=== PATIENT | male | born 1945 | race Caucasian/White ===

== ENCOUNTER 2017-04-12 08:49 | Inpatient (IN) | payer MEDICARE ==
[~2017-04-12] VITALS: Ht 203.2 cm; Wt 113.0 kg
[2017-04-12] MEDS ORDERED: VITA1000 PO (11:59)
[2017-04-12] MEDS ORDERED: ALLO100T PO (11:59)
[2017-04-22] MEDS ORDERED: METOPROLOL TARTRATE 25 MG TAB PO PRN (05:45)
[2017-04-22] MEDS ORDERED: CHLORHEXIDINE GLUCONATE 4% SOLN 120 ML BTL TOPICAL SCH (05:45)
[2017-04-22] MEDS ORDERED: POVIDONE IODINE 5% (ANTISEPSIS KIT) 4 APPLICATIONS EACH NARE PRN (05:45)
[2017-04-22] MEDS ORDERED: CHLORHEXIDINE GLUCONATE 2 % 1 PACK (2 CLOTHS) TOPICAL PRN (05:45)
[2017-04-22] MEDS ORDERED: INSULIN HUMAN REGULAR 1,000 UNITS/10 ML VIAL SQ PRN (05:45)
[2017-04-22] MEDS ORDERED: SODIUM CHLORID 0.9% 500 ML IV PRN (05:45)
[2017-04-22] MEDS ORDERED: ceFAZolin 2 GM PREMIX 50 ML IV SCH (05:45)
[2017-04-22] MEDS ORDERED: LACTATED RINGER'S 1000 ML IV PRN (05:45)
[2017-04-22 05:51] VITALS: BP 121/79; PULSE 48; RESP 16; TEMP 97.7; O2SAT 96
[2017-04-22] MEDS ORDERED: GENTAMICIN SULFATE 80 MG/2 ML VIAL ONE (06:08)
[2017-04-22] MEDS: TRANEXAMIC ACID INJ 1,135 MG in SODIUM CHLORIDE 0.9% INJ 100 ML IV SCH ×2 (06:38→10:36)
[2017-04-22] MEDS ORDERED: Post-op Orders (for Pharmacy) MISC XX ONE (06:45)
[2017-04-22] MEDS ORDERED: ZOLPIDEM TARTRATE 5 MG TAB PO PRN (06:45)
[2017-04-22] MEDS ORDERED: MORPHINE SULFATE 4 MG/ML INJ IV PUSH PRN (06:45)
[2017-04-22] MEDS ORDERED: SODIUM CHLORIDE 0.9% FLUSH 5 ML FLUSH IVF PRN (06:45)
[2017-04-22] MEDS ORDERED: EXPAREL PERI-ARTICULAR INJECTION (TOTAL VOL. 100 ML) P-ARTICULR SCH ×2 (07:00)
[2017-04-22] MEDS: SODIUM CHLORIDE 0.9% FLUSH 5 ML FLUSH IVF SCH ×2 (09:00→20:05)
[2017-04-22] MEDS ORDERED: fentaNYL CITRATE 250 MCG/5 ML AMP ONE (09:36)
[2017-04-22] MEDS ORDERED: MIDAZOLAM HCL 2 MG/2 ML VIAL ONE (09:36)
--- NOTE | 2017-04-22 09:43 | HHI.FF ---
Face to Face Verification Diagnosis: (1) Status post total right knee replacement Physical Therapy Gait training Knee: Total knee, Protocol: Right, Gait training, Full weight bearing Right LE Weight Bearing: WB as tolerated Right LE Range of Motion: Active ROM (AROM, AAROM, PROM, PRE. ROM goal is 0 to 140 degrees. ROM in OR was 0 to 150 degrees.) Nursing Nursing: Dressing changes Dressing Changes: Daily dressing change, Coverderm/Primapore Additional Instructions Remove steristrips on postop day 14. I have seen patient Yefri Evans on 04/22/17. My clinical findings support the need for the requested home health care services because: Ltd mobility - disease progression Limited ability to care for self High risk of falls I certify that my clinical findings support that this patient is homebound because: Post-op weakness Unsteady gait/balance Unsafe to leave home unassisted Non-utuzyyoyoe-lwjpkuaz bed/chair Nena Parnell MD (Charles) Apr 22, 2017 09:43
[2017-04-22] MEDS ORDERED: TRANEXAMIC ACID INJ 1,135 MG in SODIUM CHLORIDE 0.9% INJ 100 ML IV SCH (10:00)
[2017-04-22] MEDS ORDERED: TRANEXAMIC ACID INJ 1,335 MG in SODIUM CHLORIDE 0.9% INJ 100 ML IV SCH (10:00)
[2017-04-22] MEDS: LACTATED RINGER'S 1000 ML INJ 1,000 ML IV SCH ×3 (10:00→20:05)
[2017-04-22] MEDS ORDERED: *morphine SULFATE 8 MG/ML PERIprocedure ONLY ONE ×3 (10:10→10:38)
[2017-04-22] MEDS ORDERED: BUPIVACAINE LIPOSOME PF 1.3% 20 ML VIAL ONE (10:53)
[2017-04-22] MEDS: KETOROLAC TROMETHAMINE 30 MG/ML (IVP) VIAL IVP SCH ×3 (11:05→23:06)
[2017-04-22] MEDS ORDERED: PROPOFOL 200 MG/20 ML AMP IV ONE (11:15)
[2017-04-22] MEDS ORDERED: ONDANSETRON HCL 4 MG/2 ML VIAL IV PUSH ONE (11:15)
[2017-04-22] MEDS ORDERED: LACTATED RINGER'S 1000 ML INJ 1,000 ML IV ONE (11:15)
[2017-04-22] MEDS: ONDANSETRON HCL 4 MG/2 ML VIAL IVP PRN (11:32)
[2017-04-22] MEDS: ACETAMINOPHEN/HYDROcodone 325 MG/7.5 MG TAB PO PRN ×3 (11:32→20:04)
[2017-04-22] MEDS: MAGNESIUM HYDROXIDE SUSP 30 ML CUP PO PRN (11:32)
--- NOTE | 2017-04-22 11:33 | RADRPT ---
EXAM DATE/TIME: 04/22/2017 10:15 [place] COMPARISON: No previous studies available for comparison. INDICATIONS : Post op right knee surgery. MEDICAL HISTORY : None. SURGICAL HISTORY : None. ENCOUNTER: Initial ACUITY: 1 day PAIN SCORE: 9/10 LOCATION: Right knee FINDINGS: Patient is status post total knee replacement. The prosthetic components appear well-placed. There is a suprapatellar drain in place. CONCLUSION: Successful total knee replacement. Salomon Mendoza MD on April 22, 2017 at 11:30 Board Certified Radiologist. This report was verified electronically.
[2017-04-22 12:00] VITALS: BP 137/64; PULSE 62; RESP 16; TEMP 95.4; O2SAT 96
[2017-04-22 13:02] VITALS: O2SAT 91
[2017-04-22] MEDS ORDERED: DO NOT ADM ANY ANTICOAGULANT DRUGS PRN (13:15)
[2017-04-22 16:00] VITALS: BP 123/66; PULSE 60; RESP 15; TEMP 95.1; O2SAT 98
--- NOTE | 2017-04-22 17:48 | PD.CONS ---
HPI Service [facility] Hospitalists Consult Requested By Dr Nena Parnell Reason for Consult Medical management Primary Care Physician Nahid Beaulieu MD Diagnoses: History of Present Illness This is a 71-year-old male with past medical history significant for gout, osteoarthritis, TURP, who presents to [facility] for elective right knee total replacement. The patient status post right total knee replacement without major complications. The patient complains of some urge to urinate however he has not been able to urinate after the surgery. Patient states he has tried to urinate for several minutes however without success. The patient otherwise denies chest pain, shortness of breath, palpitations, cough, diarrhea. Patient does admit to feeling nauseous and slightly dizzy when he got up to try to urinate. Review of Systems As per history of present illness, other systems reviewed by me and negative Past Family Social History Allergies: Coded Allergies: No Known Allergies (Verified , 04/22/17) Past Medical History Gout History of cluster headaches GERD Past Surgical History Appendectomy Hernia repair Basic procedure Left knee arthroscopy Previous pain stripping for varicose veins Reported Medications Vitamin D-1000 (Cholecalciferol) 1,000 Unit Tab 1,000 Units PO DAILY Allopurinol 100 Mg Tab 100 Mg PO DAILY Active Ordered Medications Current Medications Medications (Trade) Dose Ordered Sig/Mark Route Start Time Stop Time Status Last Admin Chlorhexidine Gluconate 1 applic 1 applic ONCE TOPICAL 04/22/17 05:45 04/25/17 05:44 (Lr 1000 ml Inj) 1,000 ml @ 80 mls/hr [id number] IV 04/22/17 06:43 04/22/17 10:00 (NS Flush) 2 ml UNSCH PRN IVF 04/22/17 06:45 IV Flush 2 ml 2 ml BID IVF 04/22/17 09:00 (Ancef Inj/NS Inj) 100 ml @ 200 mls/hr Q6H IV 04/22/17 11:00 04/22/17 23:29 04/22/17 17:33 (Morphine Inj) 4 mg Q3H PRN IV PUSH 04/22/17 06:45 (Buckhorn 7.5-325 Mg) 1 tab Q4H PRN PO 04/22/17 06:45 ([place] 7.5-325 Mg) 2 tab Q4H PRN PO 04/22/17 06:45 04/22/17 15:28 (Toradol Inj) 15 mg Q6H IVP 04/22/17 12:00 04/24/17 06:01 04/22/17 17:33 (Zofran Inj) 4 mg Q6H PRN IVP 04/22/17 06:45 04/22/17 11:32 (Colace) 100 mg BID PO 04/22/17 21:00 (Ambien) 5 mg HS PRN PO 04/22/17 06:45 (Milk Of Magnesia Liq) 30 ml DAILY PRN PO 04/22/17 06:45 04/22/17 11:32 (Ecotrin Ec) 81 mg BID PO 04/23/17 09:00 (Zyloprim) 100 mg DAILY PO 04/23/17 09:00 (Vitamin D3) 1,000 units DAILY PO 04/23/17 09:00 Miscellaneous Information ALL NURSING DEPARTME... UNSCH PRN .XX 04/22/17 13:15 04/23/17 13:14 (Dulcolax Ec) 10 mg BID PO 04/22/17 21:00 Family History Patient states his mother and father both had COPD. His grandmother on maternal side of the family had diabetes. Social History The patient denies smoking. The patient drinks alcohol 2-5 beers per day. However denies ever having gone into withdrawal. The patient is and has 3 children, 2 of them are biological and one is adopted. The patient is a retired schoolteacher. Physical Exam Vital Signs Vital Signs Date Time Temp Pulse Resp B/P Pulse Ox O2 Delivery O2 Flow Rate FiO2 04/22/17 13:02 91 21 04/22/17 12:00 95.4 62 16 137/64 96 04/22/17 11:15 59 20 115/60 94 Room Air 04/22/17 11:00 57 20 105/58 94 Room Air 04/22/17 10:45 60 18 133/63 95 Room Air 04/22/17 10:30 63 20 136/65 95 Room Air 04/22/17 10:15 61 20 121/81 95 Room Air 04/22/17 10:00 97.0 65 20 130/71 96 Nasal Cannula 2 04/22/17 05:51 97.7 48 16 121/79 96 Physical Exam GENERAL: This is a well-nourished, well-developed patient, in no apparent distress. SKIN: No rashes, ecchymoses or lesions. Cool and dry. HEAD: Atraumatic. Normocephalic. No temporal or scalp tenderness. EYES: Pupils equal round and reactive. Extraocular motions intact. No scleral icterus. No injection or drainage. ENT: Nose without bleeding, purulent drainage or septal hematoma. Throat without erythema, tonsillar hypertrophy or exudate. Uvula midline. Airway patent. NECK: Trachea midline. No JVD or lymphadenopathy. Supple, nontender, no meningeal signs. CARDIOVASCULAR: Regular rate and rhythm without murmurs, gallops, or rubs. RESPIRATORY: Clear to auscultation. Breath sounds equal bilaterally. No wheezes , rales, or rhonchi. GASTROINTESTINAL: Abdomen soft, non-tender, nondistended. No hepato-splenomegaly , or palpable masses. No guarding. MUSCULOSKELETAL: Extremities without clubbing, cyanosis. Right knee is tender to palpation, is swollen and passive and active motion are limited due to pain. No calf tenderness. Negative Homans sign bilaterally. Bilateral pedal pulses in both extremities are palpable. NEUROLOGICAL: Awake and alert. Cranial nerves II through XII intact. Motor and sensory grossly within normal limits. Five out of 5 muscle strength in all muscle groups. Normal speech. Laboratory Laboratory Tests Test 04/22/17 05:53 Blood Type O POSITIVE Antibody Screen NEGATIVE Blood Bank Comment Imaging Last Impressions Knee X-Ray 04/22/17 0643 Signed Impressions: Service Date/Time: Saturday, April 22, 2017 10:15 - CONCLUSION: Successful total knee replacement. Salomon Mendoza MD Assessment and Plan Problem List: (1) Primary osteoarthritis of right knee ICD Code: M17.11 Status: Acute Plan: Continue pain control and postsurgical management as per orthopedic surgery recommendations. Patient is currently optimization consultant and IV morphine for pain control. (2) Status post total right knee replacement ICD Code: Z96.651 Status: Acute Plan: As per orthopedic surgery. (3) Urinary retention ICD Code: R33.9 Status: Acute Plan: Perla has been unable to void for most part of the day. This was discussed with RN, will do a bladder scan and if there are more than 150 L of urine retained in the bladder, will do a straight catheterization. We'll repeat bladder scan 4 hours after first bladder scan if there is still urinary retention will place a saenz catheter. (4) Gout ICD Code: M10.9 Status: Chronic Plan: Seems to be stable. Continue allopurinol. (5) GERD (gastroesophageal reflux disease) ICD Code: K21.9 Status: Chronic Plan: Patient has history of GERD and is currently asymptomatic. However we' ll place him on PPI to prevent GERD symptoms. Assessment and Plan GI prophylaxis: We'll place on PPI DVT prophylaxis: SCDs, on aspirin as per orthopedic surgery. DVT prophylaxis will be deferred to orthopedic surgery. Thank you very much Dr. Parnell, will follow-up the patient along with you. Code Status Full code Discussed Condition With Patient, RN Problem Qualifiers (1) Gout: Qualified Code: M1A.9XX0 - Chronic gout without tophus, unspecified cause, unspecified site (2) GERD (gastroesophageal reflux disease): Qualified Code: K21.9 - Gastroesophageal reflux disease without esophagitis Epi Rojas MD Apr 22, 2017 17:48
[2017-04-22 20:00] VITALS: BP 108/58; PULSE 64; RESP 16; TEMP 96.4; O2SAT 95
[2017-04-22] MEDS: BISACODYL EC 5 MG TABEC PO SCH (20:03)
[2017-04-22] MEDS: DOCUSATE SODIUM 100 MG CAP PO SCH (20:03)
[2017-04-22 21:55] LABS: HEMATOCRIT 28.6 % (39.0-51.0); MEAN CELL VOLUME 88.4 FL (80.0-100.0); MEAN CORPUSCULAR HGB CONC 33.9 % (32.0-36.0); PLATELET COUNT 209 TH/MM3 (150-450); RED BLOOD COUNT 3.24 MIL/MM3 (4.50-5.90); RED CELL DISTRIBUTION WIDTH 14.3 % (11.6-17.2); REVIEW FLAG FINAL; WHITE BLOOD COUNT 10.7 TH/MM3 (4.0-11.0)
[2017-04-22 22:06] LABS: BICARBONATE 20.3 MEQ/L (21.0-32.0); POTASSIUM 4.1 MEQ/L (3.5-5.1)
[2017-04-22 23:47] VITALS: BP 116/62; PULSE 57; RESP 16; TEMP 97; O2SAT 96
[2017-04-23 04:00] VITALS: BP 108/59; PULSE 60; RESP 16; TEMP 96.8; O2SAT 95
[2017-04-23] MEDS: ACETAMINOPHEN/HYDROcodone 325 MG/7.5 MG TAB PO PRN ×2 (05:53→09:10)
[2017-04-23] MEDS: KETOROLAC TROMETHAMINE 30 MG/ML (IVP) VIAL IVP SCH ×3 (05:54→16:48)
--- NOTE | 2017-04-23 06:16 | PD.ORT.PN ---
Subjective Post Op Day #: 1 Subjective Remarks He is doing well. There is not much pain. Range of Motion 0 to 89 degrees. Distance Walked 2 steps forward and back with PT. Objective Vitals Vital Signs Date Time Temp Pulse Resp B/P Pulse Ox O2 Delivery O2 Flow Rate FiO2 04/23/17 04:00 96.8 60 16 108/59 95 04/22/17 23:47 97.0 57 16 116/62 96 04/22/17 20:00 96.4 64 16 108/58 95 04/22/17 16:00 95.1 60 15 123/66 98 04/22/17 13:02 91 21 04/22/17 12:00 95.4 62 16 137/64 96 04/22/17 11:15 59 20 115/60 94 Room Air 04/22/17 11:00 57 20 105/58 94 Room Air 04/22/17 10:45 60 18 133/63 95 Room Air 04/22/17 10:30 63 20 136/65 95 Room Air 04/22/17 10:15 61 20 121/81 95 Room Air 04/22/17 10:00 97.0 65 20 130/71 96 Nasal Cannula 2 I/O 04/22/17 04/22/17 04/22/17 04/23/17 04/23/17 04/23/17 07:00 15:00 23:00 07:00 15:00 23:00 Intake Total 2122 ml 912 ml 480 ml Output Total 980 ml 1890 ml 750 ml Balance 1142 ml -978 ml -270 ml Intake Oral 480 ml 480 ml 480 ml IV Total 342 ml 432 ml Other 1300 ml Output Urine Total 1300 ml 750 ml Drainage Total 480 ml 590 ml Estimated Blood Loss 500 ml Result Diagram: 04/22/17 2142 04/22/17 2142 Imaging Last 24 hours Impressions Knee X-Ray 04/22/17 0643 Signed Impressions: Service Date/Time: Saturday, April 22, 2017 10:15 - CONCLUSION: Successful total knee replacement. Salomon Mendoza MD Objective Remarks He is resting comfortably, supine in bed in the CPM. The neurovascular status is intact. The dressing is dry and intact. Assessment & Plan Ortho Post Op Day #: 1 Problem List: (1) Status post total right knee replacement Plan: Continue postop care and PT. Assessment and Plan Condition: Good. Orthopaedically stable. DVT prophylaxis: ASA, TEDs, sequentials. Discharge plans: Home with C. Has appointment. Nena Parnell MD (Charles) Apr 23, 2017 06:16
[2017-04-23 06:19] LABS: AUTOMATED NEUTROPHIL # 7.9 TH/MM3 (1.8-7.7); BASOPHIL % 0.4 % (0.0-2.0); EOSINOPHIL # 0.2 TH/MM3 (0-0.4); EOSINOPHIL % 2.1 % (0.0-4.0); HEMATOCRIT 26.4 % (39.0-51.0); HEMO FLAGS DIFF FINAL; LYMPH % 13.6 % (9.0-44.0); LYMPHOCYTE # 1.5 TH/MM3 (1.0-4.8); MEAN CELL VOLUME 87.7 FL (80.0-100.0); MEAN CORPUSCULAR HGB CONC 34.2 % (32.0-36.0); MONO % 10.2 % (0.0-8.0); NEUT % 73.7 % (16.0-70.0); PLATELET COUNT 191 TH/MM3 (150-450); RED BLOOD COUNT 3.01 MIL/MM3 (4.50-5.90); RED CELL DISTRIBUTION WIDTH 14.2 % (11.6-17.2); WHITE BLOOD COUNT 10.7 TH/MM3 (4.0-11.0)
[2017-04-23 06:43] LABS: ANION GAP 7 MEQ/L (5-15); AST (GOT) 16 U/L (15-37); BICARBONATE 26.3 MEQ/L (21.0-32.0); BLOOD UREA NITROGEN 16 MG/DL (7-18); CHLORIDE 105 MEQ/L (98-107); GLOMERULAR FILTRATION RATE 78 ML/MIN (>89); MAGNESIUM 2.1 MG/DL (1.5-2.5); POTASSIUM 3.8 MEQ/L (3.5-5.1); SODIUM (NA) 138 MEQ/L (136-145)
[2017-04-23 06:47] LABS: ALKALINE PHOSPHATASE 42 U/L (45-117); ALT (GPT) 18 U/L (12-78); TOTAL BILIRUBIN ADULT 0.4 MG/DL (0.2-1.0)
--- NOTE | 2017-04-23 07:24 | MP ---
cc: Nena CHRISTOPHER. DATE OF SURGERY 04/22/2017 PREOPERATIVE DIAGNOSIS Primary osteoarthritis right knee POSTOPERATIVE DIAGNOSIS Primary osteoarthritis right knee OPERATION PERFORMED Right total knee arthroplasty using Dee Triathlon prosthesis (uncemented). SURGEON Judd Christopher MD CASE MANAGEMENT ASSOCIATE ANN MARIE Norris ANESTHESIA Spinal with supplemental adductor canal block with additional local. INDICATIONS AND FINDINGS This is a 71-year-old man who has had pain in his right knee over a year and a half. He had significant pain in the knee and had arthroscopic surgery which subsequently did fairly well for several months afterwards. He began to have increasing pain and increasing disability from the knee. He has had pain when weightbearing and has some relief when limiting weightbearing. His ambulation tolerance is markedly diminished from what it previously was. He has stiffness in the knee with medial pain and pain ascending and descending stairs and standing from a seated position. This awakens him. He has not responded to conservative measures including anti-inflammatory agents, analgesics, nonsteroidal anti-inflammatory agents, activity modification, ambulatory aids. Physical findings showed some medial laxity with tenderness in the medial compartment and significant crepitation. There was an effusion. X-rays and MRI showed significant arthritis particularly in the patellofemoral joint, but also in the medial compartment. There are osteophytes and areas of loss of articular cartilage to exposed subchondral bone. OPERATIVE FINDINGS Showed significant osteoarthritis in the knee with loss of articular color cartilage down to expose subchondral bone. The patellofemoral articulation and changes especially in the medial compartment with cobblestone irregularity and additional loose bodies. The prosthesis used was an uncemented Dee Triathlon prosthesis with the femur being a size 8 with the tibia being a Tritanium baseplate size 8 with a 9 mm cruciate-retaining spacer and the patella being a size 40 asymmetric Tritanium backed. PROCEDURE The patient was brought to the operating room and a spinal anesthetic was administered in the clean-air operating suite. He also had an adductor canal block carried out. He was placed into a supine position on the operating table with a small bump under the right hip and a pneumatic tourniquet about the right thigh. He received prophylactic antibiotics on arrival in the operating room in the form of Ancef and also received tranexamic acid. The right leg was then prepped with alcohol, Hibiclens and Chloraprep and draped in the usual manner with the knee draped free. An appropriate time-out procedure was carried out. A longitudinal anterior incision was made from about three fingerbreadths above the superior medial pole of the patella down to the tibial tubercle. The incision was deepened through the subcutaneous tissues to the retinacular structures which were exposed medially and laterally. The medial retinacular incision was made from the superior medial pole of patella down to the tibial tubercle and up into the quadriceps tendon splitting it longitudinally. The patella was reflected. Medial and lateral dissection was carried out. The infrapatellar fat pad was debulked. The posterior surface of the patella was transected with the oscillating saw. A fenestration was made in the distal end of the femur for the intramedullary referencing guide. White size line was marked. The cutting guide was then positioned in place and stabilized with pins. The distal femoral cut was completed with the oscillating saw, resecting 8 mm. The sizing guide was then positioned. This appeared to possibly be slightly larger than an 8, therefore the anterior shift block was positioned in place. An anterior shift of 1.5 mm was made and two drill holes made. A four-in-one cutting block was then positioned in place and stabilized with pins. The stylus showed that this appeared to be satisfactory. The anterior cut was then completed with the oscillating saw after trimming some osteophytes. This was then carefully checked and the cutting block was brought back to the original position. Anterior cut was made and appeared to be appropriate without any notching. The posterior chamfer cuts and anterior chamfer cut were then completed with the oscillating saw. Osteophytes were trimmed. Attention was directed to the tibia. The tibial drill hole was made at that the area of the footprint of the anterior cruciate ligament. The intermedullary guide was then used with rotation being stabilized with a pin and further depth being verified with a stylus off the lateral side. The cutting block was stabilized with pins. The jig was removed. The depth of cut was verified and adjusted with the use of the cut spacer block. The proximal tibial cutting guide was stabilized with a cross pin. The proximal tibial cut was then made with the oscillating saw taking care to prevent injury to associated structures. The meniscectomies were completed. The osteophytes were trimmed from the posterior aspect of the femur. The posterior capsular injections of Exparel were carried out. The tibial baseplate was a size 8 with a 9 mm spacer. The femoral component size 8 cruciate-retaining was impacted into place and seated appropriately. The patella drill guide was positioned in place and drill holes made for the 40-mm asymmetric patella. The knee was taken through a range of motion which was easily 0 degrees extension to 150 degrees of flexion with excellent stability throughout the range of motion and appropriate tracking. The femoral drill holes were made. The patella and femoral trial components and a tibial spacer component for the trials were removed. The tibial bone plug and femoral bone plug were placed into the appropriate positions. The tibial punch was impacted through its guide followed by removal of the baseplate trial and placement of the drill guide. Drill holes were made. Cut ends of bone were cleaned with pulse lavage. The tibial baseplate was impacted into place and seated appropriately. This was a Tritanium size 8. The 9-mm spacer was inserted. The femoral component was impacted into place and seated appropriately. This was also a size 8 cruciate-retaining. The patella component was placed onto the posterior surface of the patella and stabilized with the patella vice. The wound was irrigated. Drains were brought out the superolateral aspect of the suprapatellar pouch. The remainder of the Exparel was injected throughout the periarticular area. Wound closure then commenced using 0 Vicryl interrupted ayndim-xo-eakjj sutures for retinacular structures, 2-0 Vicryl interrupted simple sutures with buried knots for the subcutaneous tissues and 4-0 Monocryl continuous subcuticular closure for the skin. The wound was dressed with Steri-Strips followed by a dry dressing, sterile Sof-Rol, cooling pad, further sterile Sof-Rol and Elvis bandage from base of the toe to [facility]. The patient was transferred from the operating room to the recovery room in satisfactory condition having tolerated the procedure well. Counts were correct. Specimens none. Estimated blood loss 500 mL. MD ULICES Gregg/VICKY /9:53 AM /7:15 AM
[2017-04-23 08:00] VITALS: BP 110/60; PULSE 52; RESP 15; TEMP 95.9; O2SAT 98
[2017-04-23] MEDS: SODIUM CHLORIDE 0.9% FLUSH 5 ML FLUSH IVF SCH ×2 (09:00→19:58)
[2017-04-23] MEDS: DOCUSATE SODIUM 100 MG CAP PO SCH ×2 (09:10→19:55)
[2017-04-23] MEDS: ASPIRIN EC 81 MG TABEC PO SCH ×2 (09:10→19:55)
[2017-04-23] MEDS: BISACODYL EC 5 MG TABEC PO SCH ×2 (09:10→19:56)
[2017-04-23] MEDS: CHOLECALCIFEROL (VIT D3) 1000 UNIT TAB PO SCH (09:10)
[2017-04-23] MEDS: MAGNESIUM HYDROXIDE SUSP 30 ML CUP PO PRN (09:11)
[2017-04-23] MEDS: ALLOPURINOL 100 MG TAB PO SCH (09:11)
[2017-04-23 09:44] VITALS: O2SAT 97
[2017-04-23] MEDS: ONDANSETRON HCL 4 MG/2 ML VIAL IVP PRN (11:45)
[2017-04-23 12:00] VITALS: BP 116/68; PULSE 57; RESP 14; TEMP 97; O2SAT 97
[2017-04-23 16:00] VITALS: BP 126/66; PULSE 59; RESP 14; TEMP 95.9; O2SAT 98
--- NOTE | 2017-04-23 19:07 | HHI.PR ---
Subjective Remarks Follow up for primary osteoarthritis of the right knee, urinary retention. Patient is currently doing well. He reports complete resolution of urinary retention problems. No fever, chills. Objective Vitals Vital Signs Date Time Temp Pulse Resp B/P Pulse Ox O2 Delivery O2 Flow Rate FiO2 04/23/17 18:10 16 04/23/17 16:00 95.9 59 14 126/66 98 04/23/17 12:00 97.0 57 14 116/68 97 04/23/17 09:44 97 21 04/23/17 08:00 95.9 52 15 110/60 98 04/23/17 04:00 96.8 60 16 108/59 95 04/22/17 23:47 97.0 57 16 116/62 96 04/22/17 20:00 96.4 64 16 108/58 95 I/O 04/22/17 04/22/17 04/22/17 04/23/17 04/23/17 04/23/17 07:00 15:00 23:00 07:00 15:00 23:00 Intake Total 2122 ml 912 ml 1128 ml 720 ml Output Total 980 ml 1890 ml 1110 ml 940 ml 120 ml Balance 1142 ml -978 ml 18 ml -220 ml -120 ml Intake Oral 480 ml 480 ml 480 ml 720 ml IV Total 342 ml 432 ml 648 ml 0 ml Other 1300 ml Output Urine Total 1300 ml 750 ml 800 ml Drainage Total 480 ml 590 ml 360 ml 140 ml 120 ml Estimated Blood Loss 500 ml # Voids 4 Result Diagram: 04/23/17 0540 04/23/17 0540 Imaging Last Impressions Knee X-Ray 04/22/17 0643 Signed Impressions: Service Date/Time: Saturday, April 22, 2017 10:15 - CONCLUSION: Successful total knee replacement. Salomon Mendoza MD Objective Remarks GENERAL: AOX3, NAD. SKIN: Warm and dry. HEAD: Normocephalic. EYES: No scleral icterus. No injection or drainage. NECK: Supple, trachea midline. No JVD or lymphadenopathy. CARDIOVASCULAR: Regular rate and rhythm without murmurs, gallops, or rubs. RESPIRATORY: Breath sounds equal bilaterally. No accessory muscle use. GASTROINTESTINAL: Abdomen soft, non-tender, nondistended. MUSCULOSKELETAL: No cyanosis, or edema. BACK: Nontender without obvious deformity. No CVA tenderness. Procedures 04/22/2017 Right total knee arthroplasty using Gilman Triathlon prosthesis (uncemented). A/P Problem List: (1) Primary osteoarthritis of right knee ICD Code: M17.11 Status: Acute (2) Status post total right knee replacement ICD Code: Z96.651 Status: Acute (3) Urinary retention ICD Code: R33.9 Status: Acute (4) Gout ICD Code: M10.9 Status: Chronic (5) GERD (gastroesophageal reflux disease) ICD Code: K21.9 Status: Chronic Assessment and Plan This is a 71-year-old male with past medical history significant for gout, osteoarthritis, TURP, who presents to [facility] for elective right knee total replacement. Patient had some urinary difficulty. However, on 2016, he reported resolution of any urinary difficulties. - Primary osteoarthritis of right knee - s/p right total knee arthroplasty. - Currently on [place] 7.5/325mg 1-2 tablets PRN, Toradol 15mg IV Q6hrs (8 doses). - Bowel regimen - Dulcolax, Colace. - Continue Aspirin 81mg BID. - Urinary retention - History of TURP - Symptoms resolved. Patient is encouraged to follow up with his Urologist. - Gout - Continue Allopurinol. - GERD - start PPI - continue while on Aspirin. Full code. Ambulation. Problem Qualifiers (1) Gout: Qualified Code: M1A.9XX0 - Chronic gout without tophus, unspecified cause, unspecified site (2) GERD (gastroesophageal reflux disease): Qualified Code: K21.9 - Gastroesophageal reflux disease without esophagitis David Brizuela DO Apr 23, 2017 19:07
[2017-04-23 19:50] VITALS: BP 123/66; PULSE 67; RESP 18; TEMP 96.9; O2SAT 97
[2017-04-23] MEDS: LACTATED RINGER'S 1000 ML INJ 1,000 ML IV SCH (19:56)
[2017-04-24] VITALS (7 sets, daily range): BP systolic 104–130; BP diastolic 62–73; PULSE 60–71; RESP 16–18; TEMP 95.9–98.6; O2SAT 93–97
[2017-04-24] MEDS: KETOROLAC TROMETHAMINE 30 MG/ML (IVP) VIAL IVP SCH ×2 (00:04→05:39)
[2017-04-24] MEDS: ACETAMINOPHEN/HYDROcodone 325 MG/7.5 MG TAB PO PRN ×4 (01:19→19:36)
[2017-04-24 05:49] LABS: HEMATOCRIT 24.6 % (39.0-51.0); REVIEW FLAG FINAL
--- NOTE | 2017-04-24 06:05 | PD.ORT.PN ---
Subjective Post Op Day #: 2 Subjective Remarks He is doing relatively well. There is still not much pain. Range of Motion 0 to 100 degrees. Distance Walked 200 feet. Objective Vitals Vital Signs Date Time Temp Pulse Resp B/P Pulse Ox O2 Delivery O2 Flow Rate FiO2 04/24/17 04:20 97.7 60 16 117/62 94 04/24/17 00:15 98.2 62 16 120/71 96 04/23/17 19:50 96.9 67 18 123/66 97 04/23/17 18:10 16 04/23/17 16:00 95.9 59 14 126/66 98 04/23/17 12:00 97.0 57 14 116/68 97 04/23/17 09:44 97 21 04/23/17 08:00 95.9 52 15 110/60 98 I/O 04/23/17 04/23/17 04/23/17 04/24/17 04/24/17 04/24/17 07:00 15:00 23:00 07:00 15:00 23:00 Intake Total 1128 ml 720 ml 960 ml Output Total 1110 ml 940 ml 830 ml 160 ml Balance 18 ml -220 ml 130 ml -160 ml Intake Oral 480 ml 720 ml 960 ml IV Total 648 ml 0 ml Output Urine Total 750 ml 800 ml 600 ml Drainage Total 360 ml 140 ml 230 ml 160 ml # Voids 4 # Bowel Movements 0 Result Diagram: 04/24/17 0427 04/23/17 0540 Imaging Last 24 hours Impressions Knee X-Ray 04/22/17 0643 Signed Impressions: Service Date/Time: Saturday, April 22, 2017 10:15 - CONCLUSION: Successful total knee replacement. Slaomon Mendoza MD Objective Remarks He is resting comfortably, supine in bed in the CPM. The neurovascular status is intact. The dressing is dry and intact. Assessment & Plan Ortho Post Op Day #: 2 Problem List: (1) Status post total right knee replacement Plan: Continue postop care and PT. Assessment and Plan Condition: Good. Orthopaedically stable. DVT prophylaxis: ASA, TEDs, sequentials. Discharge plans: Home with [facility]. Has appointment. Rx [place] 7.5/325, Zofran 4mg SL Nena Parnell MD (Charles) Apr 24, 2017 06:05
[2017-04-24] MEDS ORDERED: HYDR-3580 PO (08:13)
[2017-04-24] MEDS ORDERED: ASPI-99 PO (08:13)
[2017-04-24] MEDS ORDERED: ZOFR4TAB3 SL (08:13)
[2017-04-24] MEDS: CHOLECALCIFEROL (VIT D3) 1000 UNIT TAB PO SCH (08:31)
[2017-04-24] MEDS: PANTOPRAZOLE SOD 20 MG DELAYED RELEASE TAB PO SCH (08:32)
[2017-04-24] MEDS: BISACODYL EC 5 MG TABEC PO SCH ×2 (08:32→19:35)
[2017-04-24] MEDS: ASPIRIN EC 81 MG TABEC PO SCH ×2 (08:32→19:36)
[2017-04-24] MEDS: ALLOPURINOL 100 MG TAB PO SCH (08:32)
[2017-04-24] MEDS: DOCUSATE SODIUM 100 MG CAP PO SCH ×2 (08:32→19:35)
[2017-04-24] MEDS: SODIUM CHLORIDE 0.9% FLUSH 5 ML FLUSH IVF SCH ×2 (08:33→19:32)
[2017-04-24] MEDS: LACTATED RINGER'S 1000 ML INJ 1,000 ML IV SCH ×2 (08:43→19:32)
--- NOTE | 2017-04-24 09:13 | HHI.PR ---
Subjective Remarks Follow up for primary osteoarthritis of the right knee, urinary retention. Mr. Evans is doing well. No acute concerns. Denies any chest pain, shortness of breath, fever, chills. Objective Vitals Vital Signs Date Time Temp Pulse Resp B/P Pulse Ox O2 Delivery O2 Flow Rate FiO2 04/24/17 08:00 96.7 60 18 121/66 93 04/24/17 04:20 97.7 60 16 117/62 94 04/24/17 00:15 98.2 62 16 120/71 96 04/23/17 19:50 96.9 67 18 123/66 97 04/23/17 18:10 16 04/23/17 16:00 95.9 59 14 126/66 98 04/23/17 12:00 97.0 57 14 116/68 97 04/23/17 09:44 97 21 I/O 04/23/17 04/23/17 04/23/17 04/24/17 04/24/17 04/24/17 07:00 15:00 23:00 07:00 15:00 23:00 Intake Total 1128 ml 720 ml 960 ml 960 ml Output Total 1110 ml 940 ml 830 ml 1010 ml Balance 18 ml -220 ml 130 ml -50 ml Intake Oral 480 ml 720 ml 960 ml 960 ml IV Total 648 ml 0 ml Output Urine Total 750 ml 800 ml 600 ml 850 ml Drainage Total 360 ml 140 ml 230 ml 160 ml # Voids 4 # Bowel Movements 0 0 Result Diagram: 04/24/17 0427 04/23/17 0540 Imaging Last Impressions Knee X-Ray 04/22/17 0643 Signed Impressions: Service Date/Time: Saturday, April 22, 2017 10:15 - CONCLUSION: Successful total knee replacement. Salomon Mendoza MD Objective Remarks GENERAL: AOX3, NAD. SKIN: Warm and dry. HEAD: Normocephalic. EYES: No scleral icterus. No injection or drainage. NECK: Supple, trachea midline. No JVD or lymphadenopathy. CARDIOVASCULAR: Regular rate and rhythm without murmurs, gallops, or rubs. RESPIRATORY: Breath sounds equal bilaterally. No accessory muscle use. GASTROINTESTINAL: Abdomen soft, non-tender, nondistended. MUSCULOSKELETAL: No cyanosis, or edema. BACK: Nontender without obvious deformity. No CVA tenderness. Procedures 04/22/2017 Right total knee arthroplasty using [place] Triathlon prosthesis (uncemented). A/P Problem List: (1) Primary osteoarthritis of right knee ICD Code: M17.11 Status: Acute (2) Status post total right knee replacement ICD Code: Z96.651 Status: Acute (3) Urinary retention ICD Code: R33.9 Status: Acute (4) Gout ICD Code: M10.9 Status: Chronic (5) GERD (gastroesophageal reflux disease) ICD Code: K21.9 Status: Chronic Assessment and Plan This is a 71-year-old male with past medical history significant for gout, osteoarthritis, TURP, who presents to [facility] for elective right knee total replacement. Patient had some urinary difficulty. However, on 2016, he reported resolution of any urinary difficulties. - Primary osteoarthritis of right knee - s/p right total knee arthroplasty. - Currently on [place] 7.5/325mg 1-2 tablets PRN, Toradol 15mg IV Q6hrs (8 doses). - Bowel regimen - Dulcolax, Colace. - Continue Aspirin 81mg BID. - Urinary retention - History of TURP - Symptoms resolved. Patient is encouraged to follow up with his Urologist. - Gout - Continue Allopurinol. - GERD - continue PPI - continue while on Aspirin. - Patient is hemodynamically stable. Patient is being discharged home with home health. Full code. Ambulation. Problem Qualifiers (1) Gout: Qualified Code: M1A.9XX0 - Chronic gout without tophus, unspecified cause, unspecified site (2) GERD (gastroesophageal reflux disease): Qualified Code: K21.9 - Gastroesophageal reflux disease without esophagitis David Brizuela DO Apr 24, 2017 9:13 am
[2017-04-25] MEDS: ACETAMINOPHEN/HYDROcodone 325 MG/7.5 MG TAB PO PRN ×5 (00:11→20:53)
[2017-04-25 04:00] VITALS: BP 116/64; PULSE 68; RESP 17; TEMP 99.6; O2SAT 94
--- NOTE | 2017-04-25 06:42 | PD.ORT.PN ---
Subjective Post Op Day #: 3 Subjective Remarks He has been doing relatively well, but became diaphoretic in the bathroom. There is still not much pain, reportedly about a level of 2. Range of Motion 0 to 108 degrees. Distance Walked 15 feet, then 100 feet. Objective Vitals Vital Signs Date Time Temp Pulse Resp B/P Pulse Ox O2 Delivery O2 Flow Rate FiO2 04/25/17 04:00 99.6 68 17 116/64 94 04/24/17 23:26 98.6 67 16 118/67 96 04/24/17 19:00 96.6 68 18 125/73 97 04/24/17 16:00 97.5 63 18 130/72 95 04/24/17 11:25 95.9 71 18 104/67 97 04/24/17 08:00 96.7 60 18 121/66 93 I/O 04/24/17 04/24/17 04/24/17 04/25/17 04/25/17 04/25/17 07:00 15:00 23:00 07:00 15:00 23:00 Intake Total 960 ml 1200 ml 480 ml 250 ml Output Total 1010 ml 960 ml Balance -50 ml 1200 ml 480 ml -710 ml Intake Oral 960 ml 1200 ml 480 ml 250 ml Output Urine Total 850 ml 960 ml Drainage Total 160 ml # Voids 4 2 # Bowel Movements 0 0 0 0 Result Diagram: 04/24/17 0427 04/23/17 0540 Imaging Last 24 hours Impressions Knee X-Ray 04/22/17 0643 Signed Impressions: Service Date/Time: Saturday, April 22, 2017 10:15 - CONCLUSION: Successful total knee replacement. Salomon Mendoza MD Objective Remarks He is resting comfortably, supine in bed in the [facility]. The neurovascular status is intact. The dressing is dry and intact. There is no erythema, induration, significant effusion or significant tenderness at this time. Assessment & Plan Ortho Post Op Day #: 3 Problem List: (1) Status post total right knee replacement Plan: Continue postop care and PT. Add Celebrex to analgesic regimen. Assessment and Plan Condition: Good. Orthopaedically stable. DVT prophylaxis: ASA, TEDs, sequentials. Discharge plans: Home with [facility]. Has appointment. Rx [place] 7.5/325, Zofran 4mg SL Nena Parnell MD (Charles) Apr 25, 2017 06:42
[2017-04-25] MEDS: CELECOXIB 200 MG CAP PO SCH ×2 (07:37→20:52)
[2017-04-25 08:00] VITALS: BP 138/75; PULSE 63; RESP 18; TEMP 96.5; O2SAT 96
[2017-04-25] MEDS: SODIUM CHLORIDE 0.9% FLUSH 5 ML FLUSH IVF SCH ×2 (09:00→20:54)
[2017-04-25] MEDS: LACTATED RINGER'S 1000 ML INJ 1,000 ML IV SCH ×2 (09:43→21:03)
[2017-04-25] MEDS ORDERED: BISACODYL 10 MG SUPP RECTAL PRN (10:15)
--- NOTE | 2017-04-25 10:22 | HHI.PR ---
Subjective Remarks Written by Sherice Sawyer, acting as scribe for Dr. Brizuela on 04/25/17 at 10:15. Follow up for primary osteoarthritis of the right knee, urinary retention. Patient seen and examined. Patient doing well, denies any new acute complaints. Patient did admit to dizziness upon standing early am, denies any current dizziness. Ambulating well in room. Denies any recent fever, chills, cough, shortness of breath, chest pain, abdominal pain, nausea, vomiting, diarrhea or dysuria. Objective Vitals Vital Signs Date Time Temp Pulse Resp B/P Pulse Ox O2 Delivery O2 Flow Rate FiO2 04/25/17 08:00 96.5 63 18 138/75 96 04/25/17 04:00 99.6 68 17 116/64 94 04/24/17 23:26 98.6 67 16 118/67 96 04/24/17 19:00 96.6 68 18 125/73 97 04/24/17 16:00 97.5 63 18 130/72 95 04/24/17 11:25 95.9 71 18 104/67 97 I/O 04/24/17 04/24/17 04/24/17 04/25/17 04/25/17 04/25/17 07:00 15:00 23:00 07:00 15:00 23:00 Intake Total 960 ml 1200 ml 480 ml 250 ml Output Total 1010 ml 960 ml Balance -50 ml 1200 ml 480 ml -710 ml Intake Oral 960 ml 1200 ml 480 ml 250 ml Output Urine Total 850 ml 960 ml Drainage Total 160 ml # Voids 4 2 # Bowel Movements 0 0 0 0 Result Diagram: 04/24/17 0427 04/23/17 0540 Imaging Last Impressions Knee X-Ray 04/22/17 0643 Signed Impressions: Service Date/Time: Saturday, April 22, 2017 10:15 - CONCLUSION: Successful total knee replacement. Salomon Mendoza MD Objective Remarks GENERAL: Well-developed, well-nourished patient, in NAD. AOX3 SKIN: Warm and dry. HEENT: Normocephalic. No scleral icterus. No injection or drainage. NECK: Supple, trachea midline. No JVD or lymphadenopathy. CARDIOVASCULAR: Regular rate and rhythm without murmurs, gallops, or rubs. RESPIRATORY: Breath sounds equal bilaterally. No accessory muscle use. GASTROINTESTINAL: Abdomen soft, non-tender, nondistended. MUSCULOSKELETAL: No cyanosis, or edema. BACK: Nontender without obvious deformity. No CVA tenderness. Procedures 04/22/2017 Right total knee arthroplasty using Dee Triathlon prosthesis (uncemented). A/P Problem List: (1) Primary osteoarthritis of right knee ICD Code: M17.11 Status: Acute (2) Status post total right knee replacement ICD Code: Z96.651 Status: Acute (3) Urinary retention ICD Code: R33.9 Status: Acute (4) Gout ICD Code: M10.9 Status: Chronic (5) GERD (gastroesophageal reflux disease) ICD Code: K21.9 Status: Chronic Assessment and Plan This is a 71-year-old male with past medical history significant for gout, osteoarthritis, TURP, who presents to [facility] for elective right knee total replacement. Patient had some urinary difficulty. However, on 2016, he reported resolution of any urinary difficulties. Primary osteoarthritis of right knee - s/p right total knee arthroplasty. - Currently on [place] 7.5/325mg 1-2 tablets PRN, Toradol 15mg IV Q6hrs (8 doses). Morphine 4 mg IV q3h PRN for breakthrough pain. - No BM as of yet since surgery. Continue bowel regimen - Dulcolax, Colace. Order for Dulcolax suppository. Follow. - Continue Aspirin 81mg BID. Normocytic normochromic anemia suspect secondary to surgery - Hemoglobin 9.0/Hematocrit 27.0. No signs or symptoms of bleeding. Patient asymptomatic. Will monitor. Urinary retention History of TURP - Symptoms resolved. Patient is encouraged to follow up with his Urologist. Gout - Continue Allopurinol. GERD - continue PPI - continue while on Aspirin. Full code. Ambulation. This note was transcribed by WING [place]. I, Dr. Ras Brizuela personally performed the history, physical exam, and medical decision making; and confirmed the accuracy of the information in the transcribed note. Authenticated by Dr. Ras Brizuela on 04/26/17 at 00:26. Discharge Planning Plan is to go home with [facility]. Problem Qualifiers (1) Gout: Qualified Code: M1A.9XX0 - Chronic gout without tophus, unspecified cause, unspecified site (2) GERD (gastroesophageal reflux disease): Qualified Code: K21.9 - Gastroesophageal reflux disease without esophagitis Sherice Sawyer Apr 25, 2017 10:22 David Brizuela DO Apr 26, 2017 00:26
[2017-04-25] MEDS: BISACODYL EC 5 MG TABEC PO SCH ×2 (10:25→20:52)
[2017-04-25] MEDS: PANTOPRAZOLE SOD 20 MG DELAYED RELEASE TAB PO SCH (10:25)
[2017-04-25] MEDS: DOCUSATE SODIUM 100 MG CAP PO SCH ×2 (10:25→20:53)
[2017-04-25] MEDS: ASPIRIN EC 81 MG TABEC PO SCH ×2 (10:25→20:53)
[2017-04-25] MEDS: CHOLECALCIFEROL (VIT D3) 1000 UNIT TAB PO SCH (10:25)
[2017-04-25] MEDS: ALLOPURINOL 100 MG TAB PO SCH (10:25)
[2017-04-25 10:52] LABS: REVIEW FLAG FINAL
[2017-04-25] MEDS: ONDANSETRON HCL 4 MG/2 ML VIAL IVP PRN (11:29)
[2017-04-25 12:00] VITALS: BP 128/71; PULSE 55; RESP 18; TEMP 97.1; O2SAT 97
[2017-04-25] MEDS: MAGNESIUM HYDROXIDE SUSP 30 ML CUP PO PRN (13:56)
[2017-04-25 16:00] VITALS: BP 125/70; PULSE 61; RESP 18; TEMP 95.8; O2SAT 100
[2017-04-25 19:00] VITALS: BP 146/81; PULSE 62; RESP 16; TEMP 96.8; O2SAT 98
[2017-04-26 00:33] VITALS: BP 139/73; PULSE 62; RESP 17; TEMP 95.9; O2SAT 98
[2017-04-26] MEDS: ACETAMINOPHEN/HYDROcodone 325 MG/7.5 MG TAB PO PRN ×4 (01:31→15:32)
[2017-04-26] MEDS: MAGNESIUM HYDROXIDE SUSP 30 ML CUP PO PRN (06:02)
--- NOTE | 2017-04-26 06:35 | PD.ORT.PN ---
Subjective Post Op Day #: 4 Subjective Remarks He is doing much better today. There is still pain. It is well controlled with medication. Range of Motion 0 to 110 degrees. Distance Walked 15, then 200 feet with PT. Objective Vitals Vital Signs Date Time Temp Pulse Resp B/P Pulse Ox O2 Delivery O2 Flow Rate FiO2 04/26/17 02:31 18 04/26/17 00:33 95.9 62 17 139/73 98 04/25/17 22:32 Room Air 04/25/17 21:53 18 04/25/17 19:00 96.8 62 16 146/81 98 04/25/17 16:00 95.8 61 18 125/70 100 04/25/17 12:00 97.1 55 18 128/71 97 04/25/17 08:00 96.5 63 18 138/75 96 I/O 04/25/17 04/25/17 04/25/17 04/26/17 04/26/17 04/26/17 07:00 15:00 23:00 07:00 15:00 23:00 Intake Total 250 ml 960 ml 240 ml Output Total 960 ml 650 ml Balance -710 ml 960 ml -410 ml Intake Oral 250 ml 960 ml 240 ml Output Urine Total 960 ml 650 ml # Voids 6 2 # Bowel Movements 0 0 Result Diagram: 04/25/17 0924 04/23/17 0540 Imaging Last 24 hours Impressions Knee X-Ray 04/22/17 0643 Signed Impressions: Service Date/Time: Saturday, April 22, 2017 10:15 - CONCLUSION: Successful total knee replacement. Salomon Mendoza MD Objective Remarks He is resting comfortably, supine in bed in the [facility]. The neurovascular status is intact. The dressing is dry and intact. There is no erythema, induration, significant effusion or significant tenderness at this time. Assessment & Plan Ortho Post Op Day #: 4 Problem List: (1) Status post total right knee replacement Plan: Continue postop care and PT. Add Celebrex to analgesic regimen. Assessment and Plan Condition: Good. Orthopaedically stable. DVT prophylaxis: ASA, TEDs, sequentials. Discharge plans: Home with [facility]. Has appointment. Rx [place] 7.5/325, Zofran 4mg SL, Celebrex 200mg BID Nena Parnell MD (Charles) Apr 26, 2017 06:35
[2017-04-26] MEDS ORDERED: CELE200C PO (07:06)
[2017-04-26 07:40] VITALS: BP 133/74; PULSE 60; RESP 16; TEMP 95.4; O2SAT 100
[2017-04-26 07:45] VITALS: BP 130/73; PULSE 87; RESP 16; TEMP 97.7; O2SAT 98
[2017-04-26] MEDS: SODIUM CHLORIDE 0.9% FLUSH 5 ML FLUSH IVF SCH (09:00)
[2017-04-26] MEDS: ASPIRIN EC 81 MG TABEC PO SCH (09:16)
[2017-04-26] MEDS: CELECOXIB 200 MG CAP PO SCH (09:16)
[2017-04-26] MEDS: DOCUSATE SODIUM 100 MG CAP PO SCH (09:17)
[2017-04-26] MEDS: BISACODYL EC 5 MG TABEC PO SCH (09:17)
[2017-04-26] MEDS: ALLOPURINOL 100 MG TAB PO SCH (09:17)
[2017-04-26] MEDS: CHOLECALCIFEROL (VIT D3) 1000 UNIT TAB PO SCH (09:17)
[2017-04-26] MEDS: PANTOPRAZOLE SOD 20 MG DELAYED RELEASE TAB PO SCH (09:17)
[2017-04-26] MEDS: LACTATED RINGER'S 1000 ML INJ 1,000 ML IV SCH (10:43)
[2017-04-26 11:36] VITALS: BP 133/73; PULSE 58; RESP 16; TEMP 95.7; O2SAT 100
--- NOTE | 2017-04-26 14:40 | HHI.PR ---
Subjective Remarks Follow up for primary osteoarthritis of the right knee, urinary retention. Patient is currently doing well. Denies any chest pain, shortness of breath, fever or chills. He had a large bowel movement today. Wants to go home. Objective Vitals Vital Signs Date Time Temp Pulse Resp B/P Pulse Ox O2 Delivery O2 Flow Rate FiO2 04/26/17 11:36 95.7 58 16 133/73 100 04/26/17 07:40 95.4 60 16 133/74 100 04/26/17 02:31 18 04/26/17 00:33 95.9 62 17 139/73 98 04/25/17 22:32 Room Air 04/25/17 21:53 18 04/25/17 19:00 96.8 62 16 146/81 98 04/25/17 16:00 95.8 61 18 125/70 100 I/O 04/25/17 04/25/17 04/25/17 04/26/17 04/26/17 04/26/17 07:00 15:00 23:00 07:00 15:00 23:00 Intake Total 250 ml 960 ml 240 ml 200 ml Output Total 960 ml 650 ml 300 ml Balance -710 ml 960 ml -410 ml -100 ml Intake Oral 250 ml 960 ml 240 ml 200 ml Output Urine Total 960 ml 650 ml 300 ml # Voids 6 2 # Bowel Movements 0 0 1 Result Diagram: 04/25/17 0924 04/23/17 0540 Objective Remarks GENERAL: AOX3, NAD. SKIN: Warm and dry. HEAD: Normocephalic. EYES: No scleral icterus. No injection or drainage. NECK: Supple, trachea midline. No JVD or lymphadenopathy. CARDIOVASCULAR: Regular rate and rhythm without murmurs, gallops, or rubs. RESPIRATORY: Breath sounds equal bilaterally. No accessory muscle use. GASTROINTESTINAL: Abdomen soft, non-tender, nondistended. MUSCULOSKELETAL: No cyanosis, or edema. BACK: Nontender without obvious deformity. No CVA tenderness. Procedures 04/22/2017 Right total knee arthroplasty using [place] Triathlon prosthesis (uncemented). A/P Problem List: (1) Primary osteoarthritis of right knee ICD Code: M17.11 Status: Acute (2) Status post total right knee replacement ICD Code: Z96.651 Status: Acute (3) Urinary retention ICD Code: R33.9 Status: Acute (4) Gout ICD Code: M10.9 Status: Chronic (5) GERD (gastroesophageal reflux disease) ICD Code: K21.9 Status: Chronic Assessment and Plan This is a 71-year-old male with past medical history significant for gout, osteoarthritis, TURP, who presents to [facility] for elective right knee total replacement. Patient had some urinary difficulty. However, on 2016, he reported resolution of any urinary difficulties. Primary osteoarthritis of right knee - s/p right total knee arthroplasty. - Currently on [place] 7.5/325mg 1-2 tablets PRN, Toradol 15mg IV Q6hrs (8 doses). Morphine 4 mg IV q3h PRN for breakthrough pain. - Had BM today. - Continue Aspirin 81mg BID. Normocytic normochromic anemia suspect secondary to surgery - Hemoglobin 9.0/Hematocrit 27.0. No signs or symptoms of bleeding. Patient asymptomatic. Will monitor. Urinary retention History of TURP - Symptoms resolved. Patient is encouraged to follow up with his Urologist. Gout - Continue Allopurinol. GERD - continue PPI - continue while on Aspirin. Patient can be discharged home with home health. Full code. Ambulation. Problem Qualifiers (1) Gout: Qualified Code: M1A.9XX0 - Chronic gout without tophus, unspecified cause, unspecified site (2) GERD (gastroesophageal reflux disease): Qualified Code: K21.9 - Gastroesophageal reflux disease without esophagitis David Brizuela DO Apr 26, 2017 2:40 pm
[2017-04-26 15:20] VITALS: BP 106/64; PULSE 68; RESP 16; TEMP 95.6; O2SAT 99
== END 2017-04-26 18:08 | disposition home health service (06) | DRG 470 ==
LOC: HSDI 04-22 05:12 → N06A 04-22 11:31
PROVIDERS: ADMIT Orthopaedic Surgery; ATTEND Orthopaedic Surgery
PROC: 0SRC0JA Replacement of Right Knee Joint with Synthetic Substitute, Uncemented, Open Approach (ICD-10-PCS; principal; 2017-04-22 06:36)
DX: M17.11 Unilateral primary osteoarthritis, right knee (principal); G62.9 Polyneuropathy, unspecified; D64.9 Anemia, unspecified; K21.9 Gastro-esophageal reflux disease without esophagitis; R33.9 Retention of urine, unspecified; M1A.9XX0 Chronic gout, unspecified, without tophus (tophi)
CPT/HCPCS: 73560; 80048; 80053; 83735; 84100; 85014; 85018; 85025; 85027; 86850; 86900; 86901; 94150; C1776; C9290; J0690; J1580; J1885; J2250; J2270; J2405; J3010; J7120

== ENCOUNTER → 2017-04-12 | Outpatient (CLI) | payer MEDICARE ==
[~2017-04-12] MED LIST: ALLO100 PO; ALLO100T PO; ASPI-99 PO; CELE200 PO; CELE200C PO; HYDR-3580 PO; OXYC-360 PO; VITA1000 PO; ZOFR4TAB3 SL
[2017-04-12 09:18] LABS: HEMATOCRIT 38.9 % (39.0-51.0); MEAN CELL VOLUME 88.1 FL (80.0-100.0); MEAN CORPUSCULAR HEMOGLOBIN 29.2 PG (27.0-34.0); MEAN CORPUSCULAR HGB CONC 33.1 % (32.0-36.0); PLATELET COUNT 250 TH/MM3 (150-450); RED BLOOD COUNT 4.41 MIL/MM3 (4.50-5.90); RED CELL DISTRIBUTION WIDTH 14.4 % (11.6-17.2); REVIEW FLAG FINAL; WHITE BLOOD COUNT 4.6 TH/MM3 (4.0-11.0)
[2017-04-12 09:28] LABS: APTT (PATIENT) 25.7 SEC (24.3-30.1); PROTHROMBIN TIME - PATIENT 10.7 SEC (9.8-11.6)
[2017-04-12 09:57] LABS: POTASSIUM 4.4 MEQ/L (3.5-5.1)
[2017-04-12 10:08] LABS: BLOOD, URINE NEG (NEG); COMMENT (UR) CULT NOT INDICATED; CULTURE IF INDICATED CULT NOT INDICATED; GLUCOSE,URINE NEG (NEG); KETONE, URINE NEG (NEG); NITRITE,URINE NEG (NEG); URINE COLOR YELLOW (YELLW/STRAW)
--- NOTE | 2017-04-12 16:49 | EKG ---
Date Performed: 04/12/2017 Time Performed: 09:11:13 PTAGE: 71 years EKG: SINUS BRADYCARDIA WITH FIRST DEGREE AV BLOCK ABNORMAL ECG Compared to prior tracing no sign ificant change DOCTOR: Shanell Gary Interpretating Date/Time 04/12/2017 16:49:03
== END ==
LOC: CPRE 08:46
PROVIDERS: ATTEND Orthopaedic Surgery
DX: Z01.810 Encounter for preprocedural cardiovascular examination (principal); Z01.812 Encounter for preprocedural laboratory examination; M17.11 Unilateral primary osteoarthritis, right knee; M79.609 Pain in unspecified limb; R00.1 Bradycardia, unspecified; I44.0 Atrioventricular block, first degree
CPT/HCPCS: 36415; 80048; 81001; 85027; 85610; 85730; 93005